=== PATIENT | female | born 1975 | race Two or more races ===

== ENCOUNTER 2023-06-27 15:12 | Inpatient (IN) | payer MEDICARE, MEDICAID ==
[~2023-06-27] VITALS: Ht 172.7 cm; Wt 67.4 kg
[2023-06-27] MEDS ORDERED: ACETAMINOPHEN 325 MG TAB PO PRN (23:00)
[2023-06-27] MEDS ORDERED: ONDANSETRON HCL 4 MG/2 ML VIAL IV PRN (23:00)
[2023-06-27] MEDS ORDERED: HYDROcodone-ACET 5/325MG TAB PO PRN (23:00)
[2023-06-27] MEDS ORDERED: DOCUSATE SOD 100 MG CAP PO PRN (23:00)
[2023-06-28] MEDS ORDERED: MORPHINE SULFATE INJ 2 MG/ml SYRG IV PRN
[2023-06-28] MEDS ORDERED: NITROGLYCERIN 0.4 MG SL TAB SL PRN
[2023-06-28] MEDS: SODIUM CHLORIDE 0.9% 1,000 ML IV SCH (00:24)
[2023-06-28 01:55] VITALS: PULSE 74; RESP 16; O2SAT 99
[2023-06-28 08:00] VITALS: PULSE 97; RESP 16; O2SAT 95
[2023-06-28] MEDS: FAMOTIDINE (10MG/ML) 2ML VL IV SCH (09:56)
[2023-06-28] MEDS: FOLIC ACID 1 MG TAB PO SCH (09:56)
[2023-06-28] MEDS: levoFLOXacin 500MG 100 ML IV SCH (11:24)
[2023-06-28 12:25] LABS: Basophils # (auto) 0.1 10 ^3/uL (0-0.2); Eosinophils # (auto) 0.1 10 ^3/uL (0-0.8); Neutrophils # (auto) 7.6 10 ^3/uL (1.6-8.6); Nucleated Red Blood Cells % 0.1 %
[2023-06-28 12:26] LABS: Basophils % (auto) 0.4 % (0.0-2.0); Eosinophils % (auto) 0.7 % (0.0-7.0); Hematocrit 39.4 % (36.0-46.0); Hemoglobin 12.1 g/dL (12.2-16.2); Lymphocytes % (auto) 25.3 % (10.0-50.0); Mean Corpuscular Hemoglobin 20.2 pg (28.0-32.0); Mean Corpuscular Hgb Conc. 30.6 g/dL (32.0-36.0); Monocytes % (auto) 8.5 % (0.0-12.0); Neutrophils % (auto) 65.1 % (37.0-80.0); Red Blood Cells 5.98 10^6/uL (4.0-5.20); White Blood Cell 11.7 10^3/uL (4.4-10.8)
[2023-06-28 12:29] LABS: Red Cell Distribution Width 22.5 % (11.8-14.3)
[2023-06-28 12:40] LABS: Alanine Aminotransferase 16 U/L (7-40); Alkaline Phosphatase 101 U/L (46-116); Anion Gap 10 (5-15); Aspartate Aminotransferase 16 U/L (13-40); BUN/Creatinine Ratio 19.4 (10.0-20.0); Bilirubin, Total 0.2 mg/dL (0.2-1.0); Blood Urea Nitrogen 13 mg/dL (9-23); Calcium 8.9 mg/dL (8.5-10.1); Carbon Dioxide 16 mmol/L (20-30); Chloride 112 mmol/L (98-107); Glucose 100 mg/dL (74-106); Potassium 3.5 mmol/L (3.5-5.1); Sodium 138 mmol/L (136-145)
[2023-06-28 13:00] LABS: Platelet Estimate Adequate
[2023-06-28 13:02] LABS: Anisocytosis Slight
[2023-06-28 13:03] LABS: Hypochromia Moderate
[2023-06-28] MEDS: ENOXAPARIN SOD 40 MG/0.4 ML SYRINGE SC SCH (13:25)
[2023-06-28 17:07] VITALS: BP 121/80; PULSE 92; RESP 18; TEMP 98.1; O2SAT 99
[2023-06-28] MEDS: cefTRIAXone 1GM/50ML D5W 50 ML IV SCH (17:39)
[2023-06-28 20:00] VITALS: BP 105/74; PULSE 95; RESP 16; TEMP 97.6; O2SAT 98
[2023-06-28 21:00] VITALS: BP 105/74; PULSE 95; RESP 16; TEMP 97.9; O2SAT 98
[2023-06-29] MEDS: BACLOFEN 10 MG TAB PO PRN (04:45)
[2023-06-29 05:00] VITALS: BP 130/82; PULSE 86; RESP 16; TEMP 97.9; O2SAT 97
[2023-06-29 06:51] LABS: Eosinophils # (auto) 0.1 10 ^3/uL (0-0.8); Monocytes # (auto) 0.7 10 ^3/uL (0-1.3); Neutrophils # (auto) 5.6 10 ^3/uL (1.6-8.6)
[2023-06-29 06:54] LABS: Basophils # (auto) 0.1 10 ^3/uL (0-0.2); Basophils % (auto) 0.7 % (0.0-2.0); Eosinophils % (auto) 0.6 % (0.0-7.0); Hematocrit 35.5 % (36.0-46.0); Hemoglobin 10.7 g/dL (12.2-16.2); Lymphocytes # (auto) 2.3 10 ^3/uL (0.4-5.4); Lymphocytes % (auto) 26.1 % (10.0-50.0); Mean Corpuscular Hgb Conc. 30.2 g/dL (32.0-36.0); Mean Corpuscular Volume 66.1 fL (80.0-100.0); Monocytes % (auto) 7.8 % (0.0-12.0); Neutrophils % (auto) 64.8 % (37.0-80.0); Nucleated Red Blood Cells % 0.1 %; Red Blood Cells 5.37 10^6/uL (4.0-5.20); White Blood Cell 8.7 10^3/uL (4.4-10.8)
[2023-06-29 06:59] LABS: Albumin 3.6 g/dL (3.2-4.8); Alkaline Phosphatase 86 U/L (46-116); Anion Gap 6 (5-15); Aspartate Aminotransferase < 8 U/L (13-40); BUN/Creatinine Ratio 16.7 (10.0-20.0); Bilirubin, Total 0.2 mg/dL (0.2-1.0); Blood Urea Nitrogen 12 mg/dL (9-23); Carbon Dioxide 18 mmol/L (20-30); Chloride 113 mmol/L (98-107); Glucose 114 mg/dL (74-106); Potassium 3.6 mmol/L (3.5-5.1); Sodium 137 mmol/L (136-145); Total Protein 6.7 g/dL (5.7-8.2)
[2023-06-29 07:03] LABS: Alanine Aminotransferase < 9 U/L (7-40)
[2023-06-29 07:10] LABS: Red Cell Distribution Width 21.9 % (11.8-14.3)
[2023-06-29 08:38] LABS: Anisocytosis Slight; Hypochromia Moderate; Platelet Estimate Adequate
[2023-06-29 08:45] VITALS: BP 110/83; PULSE 91; RESP 18; TEMP 98.1; O2SAT 95
[2023-06-29 12:33] VITALS: BP 127/99; PULSE 100; RESP 18; TEMP 99; O2SAT 99
[2023-06-29] MEDS ORDERED: ACETAMINOPHEN/CODEINE#3 (300/30mg) TAB PO PRN (15:15)
[2023-06-29 17:00] VITALS: BP 141/95; PULSE 106; RESP 18; TEMP 98.1; O2SAT 98
[2023-06-29 20:00] VITALS: BP 132/86; PULSE 103; RESP 14; TEMP 98.1; O2SAT 95
[2023-06-29] MEDS: TOPIRAMATE 25 MG TAB PO SCH (20:22)
[2023-06-29] MEDS: ACETAMINOPHEN/CODEINE#3 (300/30mg) TAB PO PRN (20:23)
[2023-06-29] MEDS: OXYBUTYNIN CHL 5 MG TAB PO SCH (20:23)
[2023-06-29 21:00] VITALS: BP 132/86; PULSE 103; RESP 14; TEMP 98.1; O2SAT 95
[2023-06-30] VITALS (8 sets, daily range): BP systolic 124–141; BP diastolic 78–88; PULSE 64–74; RESP 14–18; TEMP 98–99; O2SAT 93–100
[2023-06-30] MEDS: BACLOFEN 10 MG TAB PO PRN (00:15)
[2023-06-30 08:17] LABS: Basophils # (auto) 0.1 10 ^3/uL (0-0.2); Eosinophils # (auto) 0.1 10 ^3/uL (0-0.8); Lymphocytes # (auto) 2.2 10 ^3/uL (0.4-5.4); Mean Corpuscular Hemoglobin 19.8 pg (28.0-32.0); Monocytes # (auto) 0.5 10 ^3/uL (0-1.3); Neutrophils # (auto) 3.4 10 ^3/uL (1.6-8.6); Nucleated Red Blood Cells % 0.1 %; White Blood Cell 6.3 10^3/uL (4.4-10.8)
[2023-06-30 08:19] LABS: Basophils % (auto) 0.9 % (0.0-2.0); Hematocrit 33.1 % (36.0-46.0); Lymphocytes % (auto) 35.2 % (10.0-50.0); Mean Corpuscular Hgb Conc. 30.1 g/dL (32.0-36.0); Mean Corpuscular Volume 65.6 fL (80.0-100.0); Monocytes % (auto) 8.6 % (0.0-12.0); Neutrophils % (auto) 53.3 % (37.0-80.0); Red Blood Cells 5.05 10^6/uL (4.0-5.20)
[2023-06-30 08:33] LABS: Red Cell Distribution Width 21.8 % (11.8-14.3)
[2023-06-30 08:53] LABS: Anisocytosis Slight; Hypochromia Moderate; Platelet Estimate Adequate
[2023-06-30 08:56] LABS: Alkaline Phosphatase 82 U/L (46-116); Anion Gap 9 (5-15); BUN/Creatinine Ratio 12.5 (10.0-20.0); Blood Urea Nitrogen 7 mg/dL (9-23); Calcium 8.6 mg/dL (8.5-10.1); Carbon Dioxide 17 mmol/L (20-30); Chloride 113 mmol/L (98-107); Glucose 91 mg/dL (74-106); Potassium 3.5 mmol/L (3.5-5.1); Sodium 139 mmol/L (136-145)
[2023-06-30 08:57] LABS: Albumin 3.4 g/dL (3.2-4.8); Aspartate Aminotransferase 10 U/L (13-40); Bilirubin, Total 0.2 mg/dL (0.2-1.0); Total Protein 5.9 g/dL (5.7-8.2)
[2023-06-30 09:06] LABS: Alanine Aminotransferase < 9 U/L (7-40)
[2023-06-30] MEDS ORDERED: LIDOCAINE HCL 5 % TOP OINT 35 GM TOP ONE (16:45)
[2023-07-01] VITALS (7 sets, daily range): BP systolic 116–139; BP diastolic 73–89; PULSE 58–81; RESP 12–18; TEMP 98–98.5; O2SAT 98–100
[2023-07-01 05:45] LABS: Basophils # (auto) 0.1 10 ^3/uL (0-0.2); Eosinophils # (auto) 0.1 10 ^3/uL (0-0.8); Hemoglobin 9.9 g/dL (12.2-16.2); Lymphocytes # (auto) 2.1 10 ^3/uL (0.4-5.4); Monocytes # (auto) 0.6 10 ^3/uL (0-1.3); Neutrophils # (auto) 3.8 10 ^3/uL (1.6-8.6); Nucleated Red Blood Cells % 0.2 %; White Blood Cell 6.6 10^3/uL (4.4-10.8)
[2023-07-01] MEDS ORDERED: LIDO4PAD8 TOP (05:48)
[2023-07-01] MEDS ORDERED: DICL1GEL73 TOP (05:48)
[2023-07-01] MEDS ORDERED: FOLI-119 PO (05:48)
[2023-07-01] MEDS ORDERED: FAMO-12 PO (05:48)
[2023-07-01] MEDS ORDERED: TOPI100T68 PO (05:48)
[2023-07-01] MEDS ORDERED: OXYB5TAB14 PO (05:48)
[2023-07-01] MEDS ORDERED: BACL20TA PO (05:48)
[2023-07-01 05:49] LABS: Albumin 3.3 g/dL (3.2-4.8); Alkaline Phosphatase 74 U/L (46-116); Anion Gap 5 (5-15); Aspartate Aminotransferase < 8 U/L (13-40); BUN/Creatinine Ratio 12.1 (10.0-20.0); Basophils % (auto) 0.8 % (0.0-2.0); Bilirubin, Total 0.2 mg/dL (0.2-1.0); Blood Urea Nitrogen 7 mg/dL (9-23); Calcium 8.8 mg/dL (8.7-10.4); Carbon Dioxide 19 mmol/L (20-30); Chloride 114 mmol/L (98-107); Eosinophils % (auto) 1.9 % (0.0-7.0); Glucose 95 mg/dL (74-106); Hematocrit 32.6 % (36.0-46.0); Lymphocytes % (auto) 32.2 % (10.0-50.0); Mean Corpuscular Hemoglobin 19.9 pg (28.0-32.0); Mean Corpuscular Hgb Conc. 30.4 g/dL (32.0-36.0); Mean Corpuscular Volume 65.6 fL (80.0-100.0); Monocytes % (auto) 8.4 % (0.0-12.0); Neutrophils % (auto) 56.7 % (37.0-80.0); Potassium 3.7 mmol/L (3.5-5.1); Red Blood Cells 4.97 10^6/uL (4.0-5.20); Sodium 138 mmol/L (136-145); Total Protein 6.1 g/dL (5.7-8.2)
[2023-07-01] MEDS ORDERED: DOCU-94 PO (06:10)
[2023-07-01] MEDS ORDERED: FER325T PO (06:12)
[2023-07-01 06:17] LABS: Red Cell Distribution Width 21.9 % (11.8-14.3)
[2023-07-01 06:22] LABS: Alanine Aminotransferase < 9 U/L (7-40)
[2023-07-01] MEDS ORDERED: MULT-1018 PO (06:24)
[2023-07-01] MEDS ORDERED: BISA10SU45 RE (06:24)
[2023-07-01] MEDS ORDERED: CHOL20007 PO (06:24)
[2023-07-01] MEDS ORDERED: NITR-87 PO (06:24)
[2023-07-01] MEDS ORDERED: SIME80CH49 PO (06:24)
[2023-07-01] MEDS ORDERED: BIOT5TAB4 PO (06:24)
[2023-07-01] MEDS ORDERED: SENN-58 PO (06:24)
[2023-07-01] MEDS ORDERED: DICL1GEL59 EX (06:24)
[2023-07-01 15:12] LABS: INR 1.11 (0.9-1.15); Partial Thromboplastin Time 33.7 SEC (24.5-34.5); Prothrombin Time 11.6 sec (9.3-11.8)
[2023-07-02] VITALS (7 sets, daily range): BP systolic 121–138; BP diastolic 82–93; PULSE 70–100; RESP 18–20; TEMP 98–98.7; O2SAT 95–99
[2023-07-02] MEDS: BACLOFEN 10 MG TAB PO PRN (08:48)
[2023-07-02 11:59] LABS: Basophils # (auto) 0.1 10 ^3/uL (0-0.2); Eosinophils # (auto) 0.1 10 ^3/uL (0-0.8); Mean Corpuscular Hemoglobin 19.6 pg (28.0-32.0); Monocytes # (auto) 0.6 10 ^3/uL (0-1.3); White Blood Cell 7.3 10^3/uL (4.4-10.8)
[2023-07-02 12:01] LABS: Basophils % (auto) 1.2 % (0.0-2.0); Hematocrit 33.4 % (36.0-46.0); Hemoglobin 10.1 g/dL (12.2-16.2); Lymphocytes % (auto) 27.6 % (10.0-50.0); Mean Corpuscular Hgb Conc. 30.2 g/dL (32.0-36.0); Monocytes % (auto) 8.1 % (0.0-12.0); Neutrophils # (auto) 4.5 10 ^3/uL (1.6-8.6); Neutrophils % (auto) 62.1 % (37.0-80.0); Red Blood Cells 5.13 10^6/uL (4.0-5.20)
[2023-07-02 12:04] LABS: Red Cell Distribution Width 21.4 % (11.8-14.3)
[2023-07-02 12:24] LABS: Albumin 3.6 g/dL (3.2-4.8); Alkaline Phosphatase 81 U/L (46-116); Anion Gap 5 (5-15); Aspartate Aminotransferase 10 U/L (13-40); BUN/Creatinine Ratio 10.7 (10.0-20.0); Bilirubin, Total < 0.2 mg/dL (0.2-1.0); Blood Urea Nitrogen 9 mg/dL (9-23); Calcium 8.9 mg/dL (8.5-10.1); Carbon Dioxide 23 mmol/L (20-30); Chloride 111 mmol/L (98-107); Glucose 109 mg/dL (74-106); Potassium 3.7 mmol/L (3.5-5.1); Sodium 139 mmol/L (136-145); Total Protein 6.5 g/dL (5.7-8.2)
[2023-07-02 12:49] LABS: Alanine Aminotransferase < 9 U/L (7-40)
[2023-07-02 14:29] LABS: Platelet Estimate Adequate
[2023-07-02 14:30] LABS: Anisocytosis Slight; Hypochromia Marked
[2023-07-03 01:00] VITALS: BP 110/78; PULSE 74; RESP 20; TEMP 98.1; O2SAT 96
[2023-07-03 05:00] VITALS: BP 109/79; PULSE 78; RESP 20; TEMP 98; O2SAT 98
[2023-07-03 09:00] VITALS: BP 120/79; PULSE 78; RESP 52; TEMP 98.6; O2SAT 8; O2SAT 98
[2023-07-03] MEDS: levoFLOXacin 250 MG TAB PO SCH (10:38)
[2023-07-03 13:00] VITALS: BP 132/85; PULSE 85; RESP 20; TEMP 98.7; O2SAT 98
[2023-07-03 20:00] VITALS: PULSE 89; RESP 18; O2SAT 90
[2023-07-03 21:00] VITALS: BP 111/80; PULSE 89; RESP 18; TEMP 98.1; O2SAT 90
[2023-07-04 01:00] VITALS: BP 116/77; PULSE 64; RESP 20; TEMP 97.8; O2SAT 97
[2023-07-04 05:00] VITALS: BP 111/77; PULSE 63; RESP 18; TEMP 98; O2SAT 90
[2023-07-04 08:16] VITALS: BP 116/86; PULSE 73; RESP 20; TEMP 97.6; O2SAT 98
[2023-07-04 09:00] VITALS: BP 116/86; PULSE 73; RESP 20; TEMP 97.3; O2SAT 98
== END 2023-07-04 11:33 | disposition home or self-care (01) | DRG 699 ==
LOC: EDBD 15:12 → EDUNIT# 15:12 → ER 15:12 → OVERFLOW 23:59 → WEST WING 06-28 14:01
PROVIDERS: ADMIT Internal Medicine; ATTEND Internal Medicine
DX: T83.021A Displacement of indwelling urethral catheter, initial encounter (principal); T83.518A Infection and inflammatory reaction due to other urinary catheter, initial encounter; R32 Unspecified urinary incontinence; N20.0 Calculus of kidney; D50.9 Iron deficiency anemia, unspecified; Y73.8 Miscellaneous gastroenterology and urology devices associated with adverse incidents, not elsewhere classified; G83.9 Paralytic syndrome, unspecified; Z88.6 Allergy status to analgesic agent; Z88.1 Allergy status to other antibiotic agents; Z88.2 Allergy status to sulfonamides
CPT/HCPCS: 36415; 74176; 80053; 83605; 84484; 84702; 85025; 85610; 85730; 87040; G0378; J3490

== ENCOUNTER 2023-07-27 12:08 | Inpatient (IN) | payer MEDICARE, MEDICAID ==
[~2023-07-27] VITALS: Ht 157.5 cm; Wt 67.7 kg
[~2023-07-27 12:08] MED LIST: BACL20TA PO; BIOT5TAB4 PO; BISA10SU45 RE; CHOL20007 PO; DICL1GEL59 EX; DICL1GEL73 TOP; DOCU-94 PO; FAMO-12 PO; FER325T PO; FOLI-119 PO; LIDO4PAD8 TOP; MULT-1018 PO; NITR-87 PO; OXYB5TAB14 PO; SENN-58 PO; SIME80CH49 PO; TOPI100T68 PO
[2023-07-27 13:10] VITALS: PULSE 96; RESP 14; O2SAT 98
[2023-07-27 13:45] LABS: Basophils # (auto) 0.1 10 ^3/uL (0-0.2); Basophils % (auto) 0.3 % (0.0-2.0); Hemoglobin 11.7 g/dL (12.2-16.2); Lymphocytes # (auto) 2.2 10 ^3/uL (0.4-5.4); Mean Corpuscular Volume 65.6 fL (80.0-100.0); Neutrophils # (auto) 14.1 10 ^3/uL (1.6-8.6)
[2023-07-27 13:47] LABS: Eosinophils # (auto) 0 10 ^3/uL (0-0.8); Eosinophils % (auto) 0.3 % (0.0-7.0); Hematocrit 40.3 % (36.0-46.0); Lymphocytes % (auto) 12.5 % (10.0-50.0); Monocytes # (auto) 1.4 10 ^3/uL (0-1.3); Neutrophils % (auto) 78.9 % (37.0-80.0); Nucleated Red Blood Cells % 0.1 %; Red Blood Cells 6.14 10^6/uL (4.0-5.20); White Blood Cell 17.9 10^3/uL (4.4-10.8)
[2023-07-27 14:02] LABS: Alanine Aminotransferase 11 U/L (7-40); Albumin 3.8 g/dL (3.2-4.8); Alkaline Phosphatase 150 U/L (46-116); Anion Gap 12 (5-15); Aspartate Aminotransferase 10 U/L (13-40); BUN/Creatinine Ratio 25.7 (10.0-20.0); Blood Alcohol < 3.0 mg/dL (<10); Blood Urea Nitrogen 35 mg/dL (9-23); Calcium 9.8 mg/dL (8.5-10.1); Carbon Dioxide 19 mmol/L (20-30); Chloride 112 mmol/L (98-107); Glucose 120 mg/dL (74-106); Potassium 3.8 mmol/L (3.5-5.1); Sodium 143 mmol/L (136-145)
[2023-07-27 14:03] LABS: Bilirubin, Total 0.2 mg/dL (0.2-1.0)
[2023-07-27 14:06] LABS: Red Cell Distribution Width 22.1 % (11.8-14.3)
[2023-07-27 14:18] LABS: Anisocytosis Slight; Platelet Estimate Adequate
[2023-07-27 14:19] LABS: Hypochromia Moderate
[2023-07-27] MEDS: cefTRIAXone 1GM/50ML D5W 50 ML IV ONE (14:46)
[2023-07-27] MEDS: SODIUM CHLORIDE 0.9% 1,000 ML IV ONE (14:47)
[2023-07-27] MEDS ORDERED: ACETAMINOPHEN 325 MG TAB PO PRN (20:45)
[2023-07-27] MEDS ORDERED: ONDANSETRON HCL 4 MG/2 ML VIAL IV PRN (20:45)
[2023-07-27] MEDS: OXYBUTYNIN CHL 5 MG TAB PO SCH (23:16)
[2023-07-27] MEDS: TOPIRAMATE 25 MG TAB PO SCH (23:16)
[2023-07-27 23:38] VITALS: PULSE 93; RESP 14; O2SAT 97
[2023-07-28 04:47] LABS: Basophils # (auto) 0.1 10 ^3/uL (0-0.2); White Blood Cell 16.4 10^3/uL (4.4-10.8)
[2023-07-28 04:50] LABS: Basophils % (auto) 0.5 % (0.0-2.0); Eosinophils # (auto) 0 10 ^3/uL (0-0.8); Eosinophils % (auto) 0.2 % (0.0-7.0); Hematocrit 36.3 % (36.0-46.0); Hemoglobin 10.5 g/dL (12.2-16.2); Lymphocytes # (auto) 1.8 10 ^3/uL (0.4-5.4); Lymphocytes % (auto) 10.9 % (10.0-50.0); Mean Corpuscular Hemoglobin 19.2 pg (28.0-32.0); Monocytes # (auto) 1.3 10 ^3/uL (0-1.3); Monocytes % (auto) 7.7 % (0.0-12.0); Neutrophils # (auto) 13.2 10 ^3/uL (1.6-8.6); Neutrophils % (auto) 80.7 % (37.0-80.0); Red Blood Cells 5.49 10^6/uL (4.0-5.20)
[2023-07-28 04:55] LABS: Red Cell Distribution Width 21.7 % (11.8-14.3)
[2023-07-28 05:00] LABS: Albumin 3.4 g/dL (3.2-4.8); Alkaline Phosphatase 121 U/L (46-116); Anion Gap 13 (5-15); Aspartate Aminotransferase 12 U/L (13-40); BUN/Creatinine Ratio 26.8 (10.0-20.0); Bilirubin, Total < 0.2 mg/dL (0.2-1.0); Blood Urea Nitrogen 33 mg/dL (9-23); Carbon Dioxide 15 mmol/L (20-30); Chloride 116 mmol/L (98-107); Glucose 113 mg/dL (74-106); Potassium 3.3 mmol/L (3.5-5.1); Sodium 144 mmol/L (136-145); Total Protein 6.8 g/dL (5.7-8.2)
[2023-07-28 05:02] LABS: Alanine Aminotransferase 9 U/L (7-40)
[2023-07-28 06:02] LABS: Anisocytosis Slight; Hypochromia Marked; Platelet Estimate Adequate
[2023-07-28 07:25] VITALS: PULSE 81; RESP 11; O2SAT 97
[2023-07-28] MEDS: POTASSIUM CHL 20MEQ/100ML 100 ML IV ONE (07:49)
[2023-07-28] MEDS: cefTRIAXone 1GM/50ML D5W 50 ML IV SCH (10:35)
[2023-07-28] MEDS: ENOXAPARIN SOD 40 MG/0.4 ML SYRINGE SC SCH (10:36)
[2023-07-28] MEDS: SODIUM CHLORIDE 0.9% 1,000 ML IV SCH (16:58)
[2023-07-29 07:30] VITALS: PULSE 75; RESP 12; O2SAT 99
[2023-07-29 14:31] LABS: Basophils # (auto) 0.1 10 ^3/uL (0-0.2); Eosinophils # (auto) 0 10 ^3/uL (0-0.8); Nucleated Red Blood Cells % 0.1 %
[2023-07-29 14:33] LABS: Basophils % (auto) 0.7 % (0.0-2.0); Eosinophils % (auto) 0.4 % (0.0-7.0); Hematocrit 36.5 % (36.0-46.0); Hemoglobin 10.1 g/dL (12.2-16.2); Lymphocytes # (auto) 1.8 10 ^3/uL (0.4-5.4); Lymphocytes % (auto) 15.2 % (10.0-50.0); Mean Corpuscular Hemoglobin 18.9 pg (28.0-32.0); Mean Corpuscular Hgb Conc. 27.6 g/dL (32.0-36.0); Mean Corpuscular Volume 68.6 fL (80.0-100.0); Monocytes # (auto) 0.5 10 ^3/uL (0-1.3); Monocytes % (auto) 4.7 % (0.0-12.0); Neutrophils # (auto) 9.3 10 ^3/uL (1.6-8.6); Red Blood Cells 5.32 10^6/uL (4.0-5.20); White Blood Cell 11.8 10^3/uL (4.4-10.8)
[2023-07-29 15:01] LABS: Red Cell Distribution Width 21.9 % (11.8-14.3)
[2023-07-29 15:11] LABS: Alanine Aminotransferase 10 U/L (7-40); Albumin 3.5 g/dL (3.2-4.8); Alkaline Phosphatase 116 U/L (46-116); Anion Gap 13 (5-15); Aspartate Aminotransferase 13 U/L (13-40); BUN/Creatinine Ratio 25.6 (10.0-20.0); Bilirubin, Total < 0.2 mg/dL (0.2-1.0); Blood Urea Nitrogen 30 mg/dL (9-23); Calcium 9.3 mg/dL (8.7-10.4); Carbon Dioxide 14 mmol/L (20-30); Chloride 117 mmol/L (98-107); Glucose 78 mg/dL (74-106); Magnesium 2.4 mg/dL (1.6-2.6); Potassium 4.1 mmol/L (3.5-5.1); Sodium 144 mmol/L (136-145)
[2023-07-29 15:12] LABS: Total Protein 7.1 g/dL (5.7-8.2)
[2023-07-29 15:27] LABS: Platelet Estimate Increased
[2023-07-29 15:28] LABS: Anisocytosis Slight; Hypochromia Moderate
[2023-07-29 19:30] VITALS: PULSE 89; RESP 16; O2SAT 97
[2023-07-30 00:40] VITALS: PULSE 105; RESP 17; O2SAT 99
[2023-07-30 05:12] LABS: Basophils # (auto) 0.1 10 ^3/uL (0-0.2); Basophils % (auto) 0.7 % (0.0-2.0); Eosinophils # (auto) 0 10 ^3/uL (0-0.8); Eosinophils % (auto) 0.1 % (0.0-7.0); Hematocrit 37.9 % (36.0-46.0); Hemoglobin 10.2 g/dL (12.2-16.2); Lymphocytes # (auto) 1.9 10 ^3/uL (0.4-5.4); Lymphocytes % (auto) 13.5 % (10.0-50.0); Mean Corpuscular Hemoglobin 18.9 pg (28.0-32.0); Mean Corpuscular Volume 70.1 fL (80.0-100.0); Monocytes # (auto) 0.7 10 ^3/uL (0-1.3); Monocytes % (auto) 4.7 % (0.0-12.0); Neutrophils # (auto) 11.7 10 ^3/uL (1.6-8.6); Nucleated Red Blood Cells % 0.1 %; White Blood Cell 14.4 10^3/uL (4.4-10.8)
[2023-07-30 05:13] LABS: Red Cell Distribution Width 22.2 % (11.8-14.3)
[2023-07-30 05:33] LABS: Albumin 3.7 g/dL (3.2-4.8); Alkaline Phosphatase 116 U/L (46-116); Anion Gap 17.00001 (5-15); Aspartate Aminotransferase 9 U/L (13-40); BUN/Creatinine Ratio 23.4 (10.0-20.0); Bilirubin, Total < 0.2 mg/dL (0.2-1.0); Blood Urea Nitrogen 29 mg/dL (9-23); Calcium 9.8 mg/dL (8.5-10.1); Chloride 120 mmol/L (98-107); Glucose 76 mg/dL (74-106); Magnesium 2.2 mg/dL (1.6-2.6); Potassium 4.1 mmol/L (3.5-5.1); Sodium 147 mmol/L (136-145); Total Protein 7.1 g/dL (5.7-8.2)
[2023-07-30 05:50] LABS: Alanine Aminotransferase < 9 U/L (7-40)
[2023-07-30 05:52] LABS: Carbon Dioxide < 10 mmol/L (20-30)
[2023-07-30 06:14] LABS: Anisocytosis Slight; Hypochromia Marked; Ovalocytes MODERATE; Platelet Estimate Increased
[2023-07-30] MEDS: SOD CHL 0.45% 1,000 ML IV SCH (06:22)
[2023-07-30 07:45] VITALS: PULSE 104; RESP 16; O2SAT 99
[2023-07-30] MEDS: SODIUM BICARB 50mEq/50ml Vial 100 ML in SOD CHL 0.45% 1,000 ML IV SCH (14:02)
[2023-07-30 16:15] LABS: Chloride 119 mmol/L (98-107); Sodium 145 mmol/L (136-145)
[2023-07-30 16:16] LABS: Anion Gap 16.00001 (5-15)
[2023-07-30 16:17] LABS: Calcium 9.4 mg/dL (8.5-10.1)
[2023-07-30 16:21] LABS: BUN/Creatinine Ratio 29.9 (10.0-20.0); Blood Urea Nitrogen 35 mg/dL (9-23); Glucose 66 mg/dL (74-106)
[2023-07-30 16:32] LABS: Carbon Dioxide < 10 mmol/L (20-30)
[2023-07-30] MEDS: SODIUM BICARB 8.4% 50Meq/50ml SYR Vial IV ONE (18:07)
[2023-07-30 20:00] VITALS: PULSE 96; RESP 19
[2023-07-30 20:28] LABS: INR 1.18 (0.9-1.15); Prothrombin Time 12.4 sec (9.3-11.8)
[2023-07-30] MEDS ORDERED: LORazepam 2MG/ML-1ML VIAL IV PRN (20:30)
[2023-07-30 23:15] VITALS: RESP 20
[2023-07-30 23:17] VITALS: BP 159/87; RESP 16; RESP 18; TEMP 98.2; O2SAT 95
[2023-07-31] VITALS (10 sets, daily range): BP systolic 124–168; BP diastolic 61–96; PULSE 64–136; RESP 17–23; TEMP 97.1–98.2; O2SAT 91–99
[2023-07-31 06:00] LABS: Hematocrit 39.9 % (36.0-46.0); Hemoglobin 9.9 g/dL (12.2-16.2); Mean Corpuscular Hemoglobin 18.7 pg (28.0-32.0); Mean Corpuscular Hgb Conc. 24.8 g/dL (32.0-36.0); Mean Corpuscular Volume 75.5 fL (80.0-100.0); Red Blood Cells 5.29 10^6/uL (4.0-5.20); White Blood Cell 15.2 10^3/uL (4.4-10.8)
[2023-07-31 06:01] LABS: Basophils % (manual) 0 (0.0-2.0); Blast Cells 0; Eosinophils % (manual) 0 (0-7); Metamyelocytes % 0; Myelocytes % 0; Promyelocytes % 0; Reactive Lymphocytes 0; Red Cell Distribution Width 23.6 % (11.8-14.3)
[2023-07-31 06:19] LABS: Albumin 3.2 g/dL (3.2-4.8); Alkaline Phosphatase 100 U/L (46-116); Anion Gap 21.00001 (5-15); Aspartate Aminotransferase 12 U/L (13-40); BUN/Creatinine Ratio 18.5 (10.0-20.0); Bilirubin, Total < 0.2 mg/dL (0.2-1.0); Blood Urea Nitrogen 22 mg/dL (9-23); Chloride 118 mmol/L (98-107); Glucose 70 mg/dL (74-106); Potassium 3.2 mmol/L (3.5-5.1); Sodium 149 mmol/L (136-145); Total Protein 6.3 g/dL (5.7-8.2)
[2023-07-31 06:20] LABS: Alanine Aminotransferase < 9 U/L (7-40)
[2023-07-31 06:24] LABS: Carbon Dioxide < 10 mmol/L (20-30)
[2023-07-31 06:49] LABS: Anisocytosis Slight; Band Neutrophils % (manual) 1; Lymphocytes % (manual) 17 (10.0-50.0); Monocytes % (manual) 4 (0-12)
[2023-07-31 06:50] LABS: Hypochromia Marked; Platelet Estimate Increased
[2023-07-31 06:51] LABS: Ovalocytes FEW
[2023-07-31] MEDS: POTASSIUM CHL 20MEQ/100ML 100 ML IV ONE (12:16)
[2023-07-31] MEDS ORDERED: PROPOFOL 10 MG/ML 20 ML IV ONE (14:26)
[2023-07-31] MEDS ORDERED: fentaNYL CITRATE 100 MCG/2 ML VL ONE (15:03)
[2023-07-31] MEDS: LIDOCAINE 1%-Mpf/Epinephrine 1:200,000 30ml VIAL ONE (15:11)
[2023-07-31] MEDS ORDERED: ePHEDrine SULFATE 50 MG/ML AMP ONE (15:36)
[2023-07-31] MEDS ORDERED: HYDROmorphone HCL 2 MG/ML VL/or syr IV PRN (16:45)
[2023-07-31] MEDS: ONDANSETRON HCL 4 MG/2 ML VIAL IV ONE (16:45)
[2023-07-31] MEDS: DOCUSATE SOD 100 MG CAP PO ONE (18:48)
[2023-07-31] MEDS: LACTULOSE 20Gm/30ML SOLN PO ONE (18:49)
[2023-07-31] MEDS: FLEET ENEMA(ADULT) 135 ML PR ONE (18:49)
[2023-07-31] MEDS: DOCUSATE SOD 100 MG CAP PO SCH (23:18)
[2023-08-01] VITALS (7 sets, daily range): BP systolic 109–134; BP diastolic 65–95; PULSE 101–126; RESP 16–19; TEMP 97.8–99.2; O2SAT 96–100
[2023-08-01 08:01] LABS: Urine Bacteria FEW /hpf (None Seen); Urine Blood 3+ /uL (Negative); Urine Clarity Turbid (Clear); Urine Mucus FEW (None Seen); Urine Protein, UAD 1+ (Negative); Urine Specific Gravity 1.011 (1.001-1.035); Urine Urobilinogen Normal (Negative); Urine WBC 818 /hpf (0 - 5); Urine WBC Clumps PRESENT /hpf (None Seen)
[2023-08-01 08:02] LABS: Urine Color Straw (Yellow)
[2023-08-01] MEDS ORDERED: LABETALOL HCL 5 MG/ML 4ML SYRINGE IV ONE (10:00)
[2023-08-01] MEDS ORDERED: POTASSIUM CHL 20MEQ/100ML 100 ML IV SCH (10:30)
[2023-08-01 12:08] LABS: Basophils # (auto) 0.1 10 ^3/uL (0-0.2); Basophils % (auto) 0.5 % (0.0-2.0); Eosinophils # (auto) 0.1 10 ^3/uL (0-0.8); Eosinophils % (auto) 0.4 % (0.0-7.0); Hematocrit 32.4 % (36.0-46.0); Hemoglobin 9.2 g/dL (12.2-16.2); Lymphocytes # (auto) 2.3 10 ^3/uL (0.4-5.4); Lymphocytes % (auto) 16.6 % (10.0-50.0); Mean Corpuscular Hemoglobin 19.1 pg (28.0-32.0); Mean Corpuscular Hgb Conc. 28.3 g/dL (32.0-36.0); Mean Corpuscular Volume 67.3 fL (80.0-100.0); Monocytes % (auto) 7.3 % (0.0-12.0); Neutrophils # (auto) 10.5 10 ^3/uL (1.6-8.6); Neutrophils % (auto) 75.2 % (37.0-80.0); Red Blood Cells 4.82 10^6/uL (4.0-5.20)
[2023-08-01 12:09] LABS: Red Cell Distribution Width 22.3 % (11.8-14.3)
[2023-08-01 12:41] LABS: Albumin 2.9 g/dL (3.2-4.8); Alkaline Phosphatase 81 U/L (46-116); Anion Gap 16 (5-15); Aspartate Aminotransferase < 8 U/L (13-40); BUN/Creatinine Ratio 18.1 (10.0-20.0); Bilirubin, Total < 0.2 mg/dL (0.2-1.0); Blood Urea Nitrogen 23 mg/dL (9-23); Carbon Dioxide 14 mmol/L (20-30); Chloride 120 mmol/L (98-107); Glucose 121 mg/dL (74-106); Magnesium 1.6 mg/dL (1.6-2.6); Phosphorus 3.2 mg/dL (2.4-5.1); Potassium 2.8 mmol/L (3.5-5.1); Sodium 150 mmol/L (136-145); Total Protein 5.8 g/dL (5.7-8.2); Uric Acid 10.8 mg/dL (3.1-7.8)
[2023-08-01 12:45] LABS: Alanine Aminotransferase < 9 U/L (7-40)
[2023-08-01] MEDS: LACTULOSE 20Gm/30ML SOLN PO ONE (14:19)
[2023-08-01] MEDS: POTASSIUM CHLORIDE 60 MEQ, LIDOCAINE 1% (LOCAL ANESTH.) 6 ML in SODIUM CHL 0.9% 500 ML IV ONE (14:19)
[2023-08-02 01:00] VITALS: BP_SYST 121; BP_SYST 139; BP_DIAS 57; BP_DIAS 73; PULSE 111; PULSE 68; RESP 18; TEMP 97.9; TEMP 98; O2SAT 89; O2SAT 97
[2023-08-02 05:53] LABS: Basophils # (auto) 0.1 10 ^3/uL (0-0.2); Eosinophils # (auto) 0.1 10 ^3/uL (0-0.8); Monocytes # (auto) 0.8 10 ^3/uL (0-1.3); Nucleated Red Blood Cells % 0.1 %
[2023-08-02 05:55] LABS: Basophils % (auto) 0.5 % (0.0-2.0); Eosinophils % (auto) 0.9 % (0.0-7.0); Hemoglobin 8.4 g/dL (12.2-16.2); Mean Corpuscular Hemoglobin 18.9 pg (28.0-32.0); Mean Corpuscular Hgb Conc. 29.9 g/dL (32.0-36.0); Mean Corpuscular Volume 63.1 fL (80.0-100.0); Monocytes % (auto) 7.1 % (0.0-12.0); Neutrophils # (auto) 8.7 10 ^3/uL (1.6-8.6); Neutrophils % (auto) 74.5 % (37.0-80.0); Red Blood Cells 4.44 10^6/uL (4.0-5.20); Red Cell Distribution Width 21.3 % (11.8-14.3); White Blood Cell 11.7 10^3/uL (4.4-10.8)
[2023-08-02 06:08] LABS: Albumin 2.7 g/dL (3.2-4.8); Alkaline Phosphatase 76 U/L (46-116); Anion Gap 9 (5-15); Aspartate Aminotransferase < 8 U/L (13-40); BUN/Creatinine Ratio 21.4 (10.0-20.0); Blood Urea Nitrogen 25 mg/dL (9-23); Carbon Dioxide 20 mmol/L (20-30); Chloride 122 mmol/L (98-107); Glucose 108 mg/dL (74-106); Magnesium 1.6 mg/dL (1.6-2.6); Potassium 3.4 mmol/L (3.5-5.1); Sodium 151 mmol/L (136-145)
[2023-08-02 06:09] LABS: Alanine Aminotransferase < 9 U/L (7-40); Bilirubin, Total 0.2 mg/dL (0.2-1.0); Total Protein 5.3 g/dL (5.7-8.2)
[2023-08-02 06:25] LABS: Platelet Estimate Adequate
[2023-08-02 06:26] LABS: Hypochromia Moderate
[2023-08-02 09:00] VITALS: BP 143/100; PULSE 106; RESP 20; TEMP 97.1; O2SAT 98
[2023-08-02] MEDS ORDERED: POTASSIUM EFFERVESENT TAB 25 MEQ PO ONE (10:00)
[2023-08-02] MEDS: SODIUM BICARB 50mEq/50ml Vial 50 ML in D5W 5% 1,000 ML IV SCH (10:15)
[2023-08-02] MEDS: POTASSIUM CHL 20MEQ/100ML 100 ML IV SCH (10:15)
[2023-08-02] MEDS: FLEET ENEMA(ADULT) 135 ML PR ONE (10:15)
[2023-08-02 13:00] VITALS: BP 150/94; PULSE 79; RESP 18; TEMP 97.7; O2SAT 98
[2023-08-02] MEDS: MAGNESIUM OXIDE 400 MG TAB PO ONE (14:02)
[2023-08-02] MEDS: LACTULOSE 20Gm/30ML SOLN PO ONE (14:11)
[2023-08-02 16:58] VITALS: BP 131/87; PULSE 102; RESP 19; TEMP 98; O2SAT 97
[2023-08-02 17:23] LABS: Protein, Urine 87.8 mg/dL (0.0-11.9)
[2023-08-02 17:24] LABS: Protein, Urine 87.3 mg/dL (0.0-11.9)
[2023-08-02 17:26] LABS: Creatinine, Urine 15.43 mg/dL (30.0-125.0); Creatinine, Urine 17.31 mg/dL (30.0-125.0); Urine Protein/Creatinine Ratio 5.07; Urine Protein/Creatinine Ratio 5.66
[2023-08-02] MEDS: POTASSIUM CHL 20 Meq TABLET PO ONE (18:05)
[2023-08-02 21:00] VITALS: BP 139/90; PULSE 96; RESP 22; TEMP 98.3; O2SAT 98
[2023-08-02] MEDS: MAGNESIUM OXIDE 400 MG TAB PO SCH (22:00)
[2023-08-02] MEDS: LACTULOSE 20Gm/30ML SOLN PO SCH (22:00)
[2023-08-03 01:00] VITALS: BP 123/92; PULSE 95; RESP 20; TEMP 98.1; O2SAT 96
[2023-08-03 05:00] VITALS: BP_SYST 125; BP_SYST 138; BP_DIAS 51; BP_DIAS 95; PULSE 67; PULSE 97; RESP 18; RESP 20; TEMP 97.8; TEMP 97.9; O2SAT 91; O2SAT 95
[2023-08-03 09:00] VITALS: BP 144/89; PULSE 82; RESP 19; TEMP 97.5; O2SAT 98
[2023-08-03] MEDS: POTASSIUM EFFERVESENT TAB 25 MEQ PO ONE (11:38)
[2023-08-03 12:58] VITALS: BP 150/92; PULSE 87; RESP 17; TEMP 97.7; O2SAT 98
[2023-08-03] MEDS: MAGNESIUM SULFATE 1GM/100ML 100 ML IV SCH (15:42)
[2023-08-03 16:47] VITALS: BP 144/83; PULSE 75; RESP 21; TEMP 98.2; O2SAT 99
[2023-08-03 21:00] VITALS: BP 152/76; PULSE 59; RESP 22; TEMP 97.9; O2SAT 100
[2023-08-04 01:00] VITALS: BP 148/73; PULSE 60; RESP 22; TEMP 97.7; O2SAT 100
[2023-08-04 05:00] VITALS: BP 146/87; PULSE 88; RESP 20; TEMP 98.1; O2SAT 95
[2023-08-04 06:53] LABS: Alkaline Phosphatase 80 U/L (46-116); Anion Gap 5 (5-15); Aspartate Aminotransferase < 8 U/L (13-40); Blood Urea Nitrogen 20 mg/dL (9-23); Carbon Dioxide 25 mmol/L (20-30); Chloride 115 mmol/L (98-107); Glucose 96 mg/dL (74-106); Potassium 4.1 mmol/L (3.5-5.1)
[2023-08-04 06:54] LABS: Bilirubin, Total < 0.2 mg/dL (0.2-1.0); Total Protein 5.6 g/dL (5.7-8.2)
[2023-08-04 06:59] LABS: Alanine Aminotransferase < 9 U/L (7-40); Sodium 145 mmol/L (136-145)
[2023-08-04 08:42] VITALS: BP 134/82; PULSE 78; RESP 17; TEMP 98; O2SAT 99
[2023-08-04 12:16] VITALS: TEMP 36.7
[2023-08-04 13:00] VITALS: BP 143/89; PULSE 80; RESP 20; TEMP 96.9; O2SAT 97
[2023-08-04 16:49] VITALS: BP 145/100; PULSE 95; RESP 16; TEMP 98.2; O2SAT 99
== END 2023-08-04 12:13 | disposition hospice, home (50) | DRG 871 ==
LOC: ER 12:08 → EDUNIT# 12:08 → EDBD 12:08 → OVERFLOW 20:46 → CENTRAL 07-30 22:55
PROVIDERS: ADMIT Nurse Practitioner; ATTEND Internal Medicine Geriatric Medicine
PROC: 0T9B30Z Drainage of Bladder with Drainage Device, Percutaneous Approach (ICD-10-PCS; principal; 2023-07-31 15:18)
DX: A41.9 Sepsis, unspecified organism (principal); G93.41 Metabolic encephalopathy; N17.0 Acute kidney failure with tubular necrosis; E87.0 Hyperosmolality and hypernatremia; G82.20 Paraplegia, unspecified; N39.0 Urinary tract infection, site not specified; G95.9 Disease of spinal cord, unspecified; E87.20 Acidosis, unspecified; E87.6 Hypokalemia; G35 Multiple sclerosis; N18.9 Chronic kidney disease, unspecified; E86.9 Volume depletion, unspecified; I12.9 Hypertensive chronic kidney disease with stage 1 through stage 4 chronic kidney disease, or unspecified chronic kidney disease; K56.41 Fecal impaction; N13.9 Obstructive and reflux uropathy, unspecified; G31.9 Degenerative disease of nervous system, unspecified; Z66 Do not resuscitate; E83.42 Hypomagnesemia; D63.1 Anemia in chronic kidney disease; R32 Unspecified urinary incontinence; Z88.1 Allergy status to other antibiotic agents; Z88.6 Allergy status to analgesic agent; Z88.5 Allergy status to narcotic agent; Z79.899 Other long term (current) drug therapy; Z87.891 Personal history of nicotine dependence; Z51.5 Encounter for palliative care
CPT/HCPCS: 36415; 70450; 70551; 71045; 74176; 76775; 80048; 80053; 80320; 81001; 82306; 82570; 82962; 83605; 83735; 83935; 83970; 84100; 84156; 84300; 84484; 84550; 84702; 85007; 85025; 85027; 85610; 87040; 87086; 96365; 96367; G0378; J2001; J2704; J3480